=== PATIENT | male | born 2000 | race African-American/Black ===

== ENCOUNTER 2023-08-19 18:02 | Emergency (ER) | payer BC, SELFPAY ==
[2023-08-19 18:23] VITALS: BP 129/63; PULSE 77; RESP 16; TEMP 36.7; O2SAT 99
[2023-08-19 18:30] VITALS: RESP 20
--- NOTE | 2023-08-19 18:42 | ED.URI ---
HPI - URI/Sore Throat General Chief Complaint: Upper Respiratory Infection Stated Complaint: Cough/Chest Congestion Source: patient and RN notes reviewed History of Present Illness HPI Narrative: 23 yo M presents to urgent care with complaints of cough, wheezing, and congestion x 2-3 days. pt reports chest tightness and some SOB. Pt states his wheezing just started today. Denies any fevers, chills, chest pain, N/V/D. Denies any sore throat or ear pain. Related Data Home Medications Medication Instructions Recorded Confirmed albuterol sulfate 90 mcg/actuation 90 mcg inhalation PRN 08/19/23 08/19/23 aerosol inhaler emtricitabine 200 mg-tenofovir 300 tablet PO DAILY 08/19/23 08/19/23 disoproxil fumarate 300 mg tablet lamotrigine 100 mg tablet 100 mg PO DAILY 08/19/23 08/19/23 quetiapine 25 mg tablet 25 mg PO DAILY 08/19/23 08/19/23 Allergies Allergy/AdvReac Type Severity Reaction Status Date / Time hydrocodone AdvReac Intermediate itching Verified 08/19/23 18:31 Review of Systems Review of Systems: Pertinent positives and pertinent negatives per HPI. PMFSH Comments At the time of my signature, I reviewed and agree with the nursing past medical, surgical, social, and family history. There is no relevant family history pertinent to the patient complaint. Exam Narrative: GENERAL: This is a well-nourished, well-developed patient, in no apparent distress. HEAD: normocephalic, atraumatic. EYES: Sclera clear/white. Vision is grossly intact. EARS: External ears normal, auditory canals clear and without drainage, TMs normal without perforation. Hearing grossly intact. NOSE: External nose normal with no obvious nasal discharge, nares without redness, no rhinorrhea. THROAT: Mucous membranes moist, posterior pharynx clear. NECK: Neck supple, non-tender without lymphadenopathy, masses or thyromegaly. CARDIOVASCULAR: Regular rate and rhythm without murmurs, gallops, or rubs. RESPIRATORY: Slight wheezing noted in right upper and right lower lung. SKIN: warm, intact with no suspicious lesions or rash, good texture and turgor. NEURO: awake, alert, and oriented to person, place and time. There were no obvious focal neurologic abnormalities. EXTREMITIES: No clubbing, cyanosis, or edema. No joint tenderness, effusion, or edema noted. BACK: Nontender without deformity or crepitus. No flank tenderness. Course Course Level of Care: Express Care Visit Vital Signs Vital signs: Vital Signs Temperature 98.0 F 08/19/23 18:23 Pulse Rate 77 08/19/23 18:23 Respiratory Rate 16 08/19/23 18:23 Blood Pressure 129/63 08/19/23 18:23 Pulse Oximetry 99 08/19/23 18:23 Oxygen Delivery Room Air 08/19/23 18:23 Temperature 98.0 F 08/19/23 18:23 Pulse Rate 77 08/19/23 18:23 Respiratory Rate 16 08/19/23 18:23 Blood Pressure 129/63 08/19/23 18:23 Pulse Oximetry 99 08/19/23 18:23 Oxygen Delivery Room Air 08/19/23 18:23 Reviewed MDM - URI/Sore Throat MDM Narrative Medical decision making narrative: Viral illness may last between 7-12days; antibiotic is NOT recommended at this time. Recommend antihistamine such as Benadryl at night time and Claritin/Zyrtec/Christina during the day. Increase your Vitamin C intake. Steam from hot showers help with congestion. Use inhaler as needed for cough, wheezing, shortness of breath or chest tightness. Also, recommend symptomatic treatment includes: rest, fluids, increase humidity of the air at home with a humidifier in the bedroom. Recommend Acetaminophen or nonsteroidal anti-inflammatory agents(NSAIDs) as directed in the bottle to reduce fever and/pain/headache. Avoid smoking/second-hand smoke. Limit visits to areas with large crowds. Frequent hand washing or hand scarfing machine operator is one of the best ways to prevent spread of infection. Take the steroids as directed. Differential Diagnosis Differential diagnosis: Likely upper respiratory infection, otitis medi
== END 2023-08-19 18:58 | disposition home or self-care (01) ==
PROVIDERS: Emergency Provider Nurse Practitioner Family; PCP Nurse Practitioner Family
DX: J06.9 Acute upper respiratory infection, unspecified (principal); J45.909 Unspecified asthma, uncomplicated; G40.909 Epilepsy, unspecified, not intractable, without status epilepticus; F41.9 Anxiety disorder, unspecified; F31.9 Bipolar disorder, unspecified
CPT/HCPCS: 99203; G0463

== ENCOUNTER 2023-10-08 19:43 | Emergency (ER) | payer BC, SELFPAY ==
--- NOTE | 2023-10-08 19:47 | ED.URI ---
HPI - URI/Sore Throat General Chief Complaint: Upper Respiratory Infection Stated Complaint: hard to breathe Time Seen by Provider: 10/08/23 19:47 Source: patient, RN notes reviewed and old records reviewed Mode of arrival: ambulatory Limitations: no limitations History of Present Illness HPI Narrative: 23 year old male presents to [facility] care with complaints of increased shortness of breath and some tightness of his chest with breathing for the past 3 days. Patient reports history of asthma and states that he has had to use his inhaler mor frequently the past 3 days, Patient has nebulizer but has not used for his symptoms.Patient denies any nasal congestion or drainage, sore throat or any recent fevers. MD elicited complaint: cough and other (dyspnea) Pertinent past history: asthma Onset (ago): day(s) (3) Severity: moderate Exacerbating factors: exertion Treatments prior to arrival: other (inhalers Zyrtec daily) Related Data Home Medications Medication Instructions Recorded Confirmed albuterol sulfate 90 mcg/actuation 90 mcg inhalation PRN 08/19/23 08/19/23 aerosol inhaler emtricitabine 200 mg-tenofovir 300 tablet PO DAILY 08/19/23 08/19/23 disoproxil fumarate 300 mg tablet lamotrigine 100 mg tablet 100 mg PO DAILY 08/19/23 08/19/23 quetiapine 25 mg tablet 25 mg PO DAILY 08/19/23 08/19/23 Allergies Allergy/AdvReac Type Severity Reaction Status Date / Time hydrocodone AdvReac Intermediate itching Verified 08/19/23 18:31 Review of Systems Review of Systems: CONSTITUTIONAL: Denies malaise, chills, sweats, or fever. EYES: Denies visual changes, redness, or discharge. ENT: Reports minimal rhinorrhea, congestion, no sinus pain, no otalgia and no sore throat. CARDIOVASCULAR: Denies chest pain, palpitations, or edema. RESPIRATORY: Reports cough.?reports some dyspnea. GASTROINTESTINAL: Denies abdominal pain, nausea, vomiting, diarrhea SKIN: Denies rash or itching. MUSCULOSKELETAL: Denies myalgia. NEUROLOGIC: Denies headache. All systems reviewed & are unremarkable except as noted in HPI and below PMFSH Past Medical History Medical History (Updated 10/09/23 @ 18:18 by Magaly Alvarez NP) Anxiety Asthma Bipolar disorder Seizures Social History Social History (Updated 10/09/23 @ 18:13 by Magaly Alvarez NP) Smoking status: Never smoker Alcohol intake: current Alcohol use details: social Substance use type: does not use Gender identity (if verbalized by the patient): Male Comments At time of signature, agree with nursing past medical, surgical, social and family history. There is no relevant family history pertinent to the presenting complaint Exam Narrative: GENERAL: Well-appearing, well-nourished, and in no acute distress. HEAD: Normocephalic EYES: PERRLA, conjunctivae clear ENT: Nares clear, turbinates edematous and erythematous, clear discharge. Mucous membranes moist. TM pearly alcaraz with dull light reflex bilaterally; no tragal tenderness. Oropharynx erythematous without lesions. Tonsils not enlarged and without exudate, no drooling, no hoarseness, no trismus, uvula midline. NECK: Supple. No lymphadenopathy CHEST: Scattered wheezing breath sounds equal. wheezing, no rhonchi, rales, or stridor. No respiratory distress, speaks in full sentences.cough SAO2 99% on room air HEART: Regular rate and rhythm. No murmur heard. SKIN: Warm, dry, no rash. NEURO: Alert and oriented x3. PSYCH: Normal mood and affect Course Course Emergency Course: Patient is aware of diagnosis, understands and agrees to treatment plan.? Anticipatory guidance given.? Patient agrees to follow-up as directed and is aware of reasons to seek care at the emergency department. Portions of this record may have been created with voice recognition software Level of Care: Express Care Visit Vital Signs Vital signs: Vital Signs Temperature 37.1 C 10/08/23 19:49 Pulse Rat
[2023-10-08 19:49] VITALS: BP 119/75; PULSE 84; RESP 16; TEMP 37.1; O2SAT 99
[2023-10-08 19:50] VITALS: BP 119/75; PULSE 84; RESP 16; TEMP 37.1; O2SAT 99
== END 2023-10-08 20:04 | disposition home or self-care (01) ==
PROVIDERS: Emergency Provider Registered Nurse; PCP Nurse Practitioner Family
DX: J45.901 Unspecified asthma with (acute) exacerbation (principal); J45.909 Unspecified asthma, uncomplicated; F31.9 Bipolar disorder, unspecified; G40.909 Epilepsy, unspecified, not intractable, without status epilepticus
CPT/HCPCS: 99213; G0463

== ENCOUNTER 2024-04-12 18:53 | Emergency (ER) | payer BC, SELFPAY ==
[2024-04-12 18:58] VITALS: BP 133/67; PULSE 79; RESP 16; TEMP 36.9; O2SAT 100
[2024-04-12 19:03] VITALS: BP 133/67; PULSE 79; RESP 16; TEMP 36.9; O2SAT 100
--- NOTE | 2024-04-12 19:06 | ED.URI ---
HPI - URI/Sore Throat General Chief Complaint: Upper Respiratory Infection Stated Complaint: fever/aches feels under weather Time Seen by Provider: 04/12/24 19:07 Source: patient, RN notes reviewed and old records reviewed Mode of arrival: ambulatory Limitations: no limitations History of Present Illness HPI Narrative: 23-year-old male who presents to [facility] Care with complaints of cough, fevers, aches and feels under the weather. Patient reports that he had a fever of 101.8F which started this morning around 0500. Patient states that he took some Tylenol for his fever and it resolved, has used his inhaler some in the past few days, denies any acute cough and sinus drainage, has had some tenderness to his left ear. Patient reports that he has some body aches and also headache today. MD elicited complaint: cough and other (body aches) Pertinent past history: asthma Onset (ago): day(s) (1) Pain scale (0-10): 8 Able to tolerate fluids by mouth: Yes Treatments prior to arrival: acetaminophen and other (used inhaler) Related Data Home Medications Medication Instructions Recorded Confirmed albuterol sulfate 90 mcg/actuation 90 mcg inhalation PRN 08/19/23 08/19/23 aerosol inhaler emtricitabine 200 mg-tenofovir 300 tablet PO DAILY 08/19/23 08/19/23 disoproxil fumarate 300 mg tablet lamotrigine 100 mg tablet 100 mg PO DAILY 08/19/23 08/19/23 quetiapine 25 mg tablet 25 mg PO DAILY 08/19/23 08/19/23 ipratropium 0.5 mg-albuterol 3 mg ml inhalation 04/12/24 (2.5 mg base)/3 mL nebulization soln naproxen 500 mg tablet mg 04/12/24 Allergies Allergy/AdvReac Type Severity Reaction Status Date / Time iodine Allergy Anaphylaxis Verified 04/12/24 19:24 hydrocodone AdvReac Intermediate itching Verified 08/19/23 18:31 Review of Systems Review of Systems: CONSTITUTIONAL: Reports malaise, chills, sweats, or fever. EYES: Denies visual changes, redness, or discharge. ENT: Reports rhinorrhea, congestion, sinus pain, positive for left otalgia and no sore throat. CARDIOVASCULAR: Denies chest pain, palpitations, or edema. RESPIRATORY: Reports some cough.? Denies dyspnea. GASTROINTESTINAL: Denies abdominal pain, nausea, vomiting, diarrhea SKIN: Denies rash or itching. MUSCULOSKELETAL: Reports myalgia. NEUROLOGIC: Denies headache. All systems reviewed & are unremarkable except as noted in HPI and below PMFSH Past Medical History Medical History Anxiety Asthma Bipolar disorder Seizures Social History Social History Smoking status: Never smoker Alcohol intake: current Alcohol use details: social Substance use type: does not use Gender identity (if verbalized by the patient): Male Comments At time of signature, agree with nursing past medical, surgical, social and family history. There is no relevant family history pertinent to the presenting complaint Exam Narrative: GENERAL: Well-appearing, well-nourished, and in no acute distress. HEAD: Normocephalic EYES: PERRLA, conjunctivae clear ENT: Nares clear, turbinates edematous and erythematous, clear discharge. Mucous membranes moist.Left TM red and bulging, Right TM pearly alcaraz with dull light reflex bilaterally; no tragal tenderness. Oropharynx erythematous without lesions. Tonsils not enlarged and without exudate, no drooling, no hoarseness, no trismus, uvula midline. NECK: Supple. No lymphadenopathy CHEST: Occasional wheezing noted on auscultation, breath sounds equal. Positive for wheezing, rhonchi, rales, or stridor. No respiratory distress, speaks in full sentences.SAO2 100% on room air HEART: Regular rate and rhythm. No murmur heard. SKIN: Warm, dry, no rash. NEURO: Alert and oriented x3. PSYCH: Normal mood and affect Course Course Emergency Course: Patient is aware of diagnosis, understands and agrees to t
[2024-04-12 19:33] LABS: EDINFLUASCREEN Negative; EDINFLUBSCREEN Negative
== END 2024-04-12 19:48 | disposition home or self-care (01) ==
PROVIDERS: Emergency Provider Registered Nurse; PCP Physician Assistant
DX: H66.92 Otitis media, unspecified, left ear (principal); R05.9 Cough, unspecified; Z20.822 Contact with and (suspected) exposure to COVID-19; J45.909 Unspecified asthma, uncomplicated; F31.9 Bipolar disorder, unspecified; G40.909 Epilepsy, unspecified, not intractable, without status epilepticus
CPT/HCPCS: 87426; 87804; 99213; G0463